=== PATIENT | male | born 1990 | race Caucasian/White ===

== ENCOUNTER 2018-02-04 04:41 | Emergency (ER) | payer OTHER ==
[~2018-02-04] VITALS: Ht 177.8 cm; Wt 57.1 kg
[~2018-02-04 04:41] MED LIST: CITRATE OF MAG296 ML PO; Cipro PO; Flagyl PO; METHADONE 22 MG/1 ML PO; MIRALAX255 GM PO; NOHOMEMEDS; Percocet 5/325,Endoc PO; Zofran PO
[2018-02-04] MEDS ORDERED: SUDAFED PE PRE1 EACH PO (04:58)
[2018-02-04] MEDS ORDERED: AUGMENTIN875 MG PO (04:58)
[2018-02-04 05:21] VITALS: BP 139/88
== END 2018-02-04 05:22 | disposition home or self-care (01) ==
LOC: EME 04:41
DX: R09.81 Nasal congestion (principal); H66.93 Otitis media, unspecified, bilateral; Z87.891 Personal history of nicotine dependence
CPT/HCPCS: 99281; 99283